=== PATIENT | female | born 1965 | race Caucasian/White ===

== ENCOUNTER → 2017-07-14 | Outpatient (CLI) | payer OTHER ==
[~2017-07-14] MED LIST: CLOZ100T18 PO; CLOZ200T PO; CLOZ50TA PO; COLE625T12 PO; IBUP-1223 PO; LITH300T3 PO; MECL25TA4 PO; OMEP-110 PO; OMEP40CA6 PO; OXYC1TAB7 PO; SERT100T5 PO; SERT25TA3 PO; lithium PO; will bring med list
== END | disposition home or self-care (01) ==
LOC: PETCFH 07:59
PROVIDERS: ATTEND Internal Medicine
DX: K31.84 Gastroparesis (principal)
CPT/HCPCS: 78264; A9541

== ENCOUNTER → 2017-08-28 | Outpatient (CLI) | payer OTHER | LOC: RAD 12:23 | PROVIDERS: ATTEND Nurse Practitioner Family | DX: D64.9 Anemia, unspecified (principal); Z18.9 Retained foreign body fragments, unspecified material | CPT/HCPCS: 74021 ==